=== PATIENT | female | born 1960 | race Caucasian/White ===

== ENCOUNTER 2017-08-15 03:39 | Emergency (ER) | payer BC ==
[~2017-08-15] VITALS: Ht 165.1 cm; Wt 98.9 kg
[2017-08-15 03:45] VITALS: TEMP 36.6; Ht 165.1 cm; Wt 98.9 kg
[2017-08-15] MEDS ORDERED: XYLOCAINE 1%/SOD BICARB 20 ML VIAL INFIL ONE (04:00)
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
[2017-08-15] MEDS ORDERED: IBUP-103 PO (04:25)
[2017-08-15] MEDS ORDERED: CITA20TA9 PO (04:26)
[2017-08-15] MEDS ORDERED: SUMA6KIT IM (04:26)
[2017-08-15] MEDS ORDERED: FERR1TAB13 PO (04:27)
[2017-08-15] MEDS ORDERED: THIA100T11 PO (04:28)
[2017-08-15] MEDS ORDERED: CHOL2000 PO (04:29)
[2017-08-15] MEDS ORDERED: B-CO1CAP17 PO (04:30)
[2017-08-15] MEDS ORDERED: PRLSR20 PO (04:31)
[2017-08-15] MEDS ORDERED: CLR10 PO (04:32)
[2017-08-15] MEDS ORDERED: MULT-506 PO (04:32)
--- NOTE | 2017-08-15 05:34 | EMERGENCY ROOM VISIT NOTE ---
ED Visit Note Patient was seen and evaluated the request of my attending physician, Dr. Oropeza , for a left forehead laceration. Please see Dr. Oropeza's dictation for full history of present illness and emergency Department course outside of this repair. On examination the patient has a roughly 2.5 cm fairly linear laceration to the left upper forehead. This does gape and will require repair. There is minimal bleeding. Laceration repair. Patient elects to have their laceration repaired. Verbal consent was obtained to perform the procedure. There is an abundance of materials available for the procedure. Patient is not allergic to latex. Using sterile technique the wound was cleaned with Betadine. The area was sterilely draped. 3 ml of 1% buffered lidocaine was used to anesthetize the left forehead laceration. Once the patient was anesthetized, the wound was copiously irrigated under pressure with sterile saline. The wound was explored and there were no deep structures injured such as tendons, bone, or significant blood vessels. The laceration was repaired using 5 simple interrupted 5-0 nylon sutures with the wound edges being well approximated. Hemostasis was achieved. The area was cleaned with sterile saline and dressed with bacitracin ointment and bandage. Patient tolerated the procedure well without complications. Blood loss was negligible. Problem List Surgical Problems: (1) H/O gastric bypass Status: Resolved (2) History of cholecystectomy Status: Resolved Current/Historical Medications Scheduled Cholecalciferol (Vitamin D3), Unknown Dose PO DAILY Citalopram Hydrobromide (Celexa), 20 MG PO DAILY Ferrous Sulfate (Kp Ferrous Sulfate), 325 MG PO DAILY Ibuprofen Tab (Advil), 600 MG PO DAILY Loratadine (Claritin), 10 MG PO DAILY Multivitamin (Multivitamin), 1 TAB PO DAILY Omeprazole (Prilosec), 20 MG PO DAILY Thiamine Hcl (Vitamin B-1), Unknown Dose PO DAILY Vitamin B Cmplx/Vitc/Folic Ac (Nephrocaps), 1 CAP PO DAILY Scheduled PRN Sumatriptan Succinate (Imitrex Statdose), 0.5 ML IM DAILY PRN for Migraine Allergies Coded Allergies: No Known Allergies (Unverified , 08/15/17) Vital Signs Date Time Temp Pulse Resp B/P (MAP) Pulse Ox O2 Delivery O2 Flow Rate FiO2 08/15/17 03:45 36.6 63 18 118/72 97 Room Air Departure Information Referrals No Doctor, Assigned (PCP) Patient Instructions [facility]
--- NOTE | 2017-08-15 05:57 | DIAGNOSTIC IMAGING REPORT ---
HEAD WITHOUT CONTRAST (CT) CLINICAL HISTORY: 57 years-old Female with lef forehead trauma. Acute left scalp laceration status post trauma. TECHNIQUE: Multiple axial CT images of the head were obtained without contrast. A dose lowering technique was utilized adhering to the principles of ALARA. CT DOSE: 614.27 mGy.cm COMPARISON: None. FINDINGS: No acute intracranial hemorrhage, midline shift, mass, large territorial ischemia or abnormal extra-axial collection. The calvarium is intact. The paranasal sinuses, mastoid air cells, and middle ear cavities are clear. There is minimal left forehead soft tissue swelling without opaque foreign body. IMPRESSION: 1. No acute intracranial abnormality. 2. Mild left forehead soft tissue swelling without foreign body or calvarial fracture. The above report was generated using voice recognition software. It may contain grammatical, syntax or spelling errors. Electronically signed by: Kennedy Rivas M.D. 08/15/2017 5:56 AM Dictated Date/Time: 08/15/2017 5:53 AM
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
[2017-08-15 06:10] VITALS: BP 119/63; PULSE 61; O2SAT 97
== END 2017-08-15 06:11 | disposition home or self-care (01) ==
LOC: EDBD 03:39 → C.EDA 03:40
DX: S01.81XA Laceration without foreign body of other part of head, initial encounter (principal); S52.502A Unspecified fracture of the lower end of left radius, initial encounter for closed fracture; Z79.899 Other long term (current) drug therapy; V78.1XXA Passenger on bus injured in noncollision transport accident in nontraffic accident, initial encounter